=== PATIENT | female | born 1995 | race Caucasian/White ===

== ENCOUNTER 2019-06-25 10:12 | Outpatient (CLI) | payer OTHER, SELFPAY ==
--- NOTE | ~2019-06-25 | US_ITS ---
EXAMINATION: US OB >= 14 weeks Fetus DATE: 06/25/2019 11:15 INDICATION: Assess anatomy during second trimester . TECHNIQUE: Multiple obstetric sonographic images performed. FINDINGS: There is a single living fetus in variable presentation. The placenta is anterior and not low-lying. Amniotic fluid volume is subjectively normal. heart rate of 141 beats per minute. The following anatomy was identified as normal: Normal situs solitus Ventricles, choroid plexus, falx and cava septum pellucidum Cerebellum and cisterna magna Nuchal fold Upper lip Spine Heart Diaphragm Stomach Kidneys Bladder 3 vessel cord and cord insertion Bilateral upper and lower extremities including hands and feet The following biometric data were obtained: BPD: 4.2 cm -> 18 weeks 5 days Head circumference: 16.2 cm -> 19 weeks 0 days Abdominal circumference: 13.9 cm -> 19 weeks 2 days Femur length: 2.8 cm -> 18 weeks 4 days These measurements are concordant. Head circumference to abdominal circumference ratio: 1.16 (normal range 1.09-1.26). Estimated weight: 265 g (+/-) 40 g. or 9 oz. (+/-) 1 oz. IMPRESSION: 1. Single living fetus with variable presentation with heart rate of 141 bpm. 2. Gestational age by ultrasound of 18 weeks 6 day(s) (+/-) 1 week 2 day(s) with ultrasound estimat ed date of delivery (ARJUN) of 11/20/2019. Estimated weight is 20th percentile by Hadlock criteria when 11/16/2019 is used as the ARJUN. Please correlate with clinical information or earlier ultrasounds f or most accurate ARJUN. 3. Normal survey. Reviewed, dictated and finalized at location A. IMPRESSION: 1. Single living fetus with variable presentation with heart rate of 141 bpm. 2. Gestational age by ultrasound of 18 weeks 6 day(s) (+/-) 1 week 2 day(s) w ith ultrasound estimated date of delivery (ARJUN) of 11/20/2019. Estimated we ight is 20th percentile by Hadlock criteria when 11/16/2019 is used as the ARJUN. P lease correlate with clinical information or earlier ultrasounds for most accur ate ARJUN. 3. Normal survey.
== END 2019-06-25 10:13 ==
LOC: MICIMG 10:15
PROVIDERS: PCP Family Medicine; Visit Provider Obstetrics & Gynecology
DX: Z36.9 Encounter for antenatal screening, unspecified (principal); Z3A.18 18 weeks gestation of pregnancy
CPT/HCPCS: 76805

== ENCOUNTER 2021-02-03 17:33 | Emergency (ER) | payer OTHER, SELFPAY ==
[2021-02-03 17:45] VITALS: BP 130/76; PULSE 86; RESP 18; TEMP 37; O2SAT 98
--- NOTE | 2021-02-03 18:10 | ED.URI ---
HPI - URI/Sore Throat General Chief Complaint: Upper Respiratory Infection Stated Complaint: Sore Throat,Congestion Source: patient and RN notes reviewed Mode of arrival: ambulatory History of Present Illness HPI Narrative: This is a 25-year-old female who presented to urgent care with complaints of a sore throat, congestion and headache that started today at home she took ibuprofen for relief. Patient notes the she has a history strep even with her tonsillectomy. The patient denies SOB, CP, palpitation, extremity numbness, lightheadedness, dizziness, constipation, diarrhea, chills, or fever. Strep negative Related Data Allergies Allergy/AdvReac Type Severity Reaction Status Date / Time No Known Allergies Allergy Verified 02/03/21 17:51 Review of Systems Review of Systems: A 14 organ system Review of Systems was performed and pertinent positives included in the HPI, otherwise remaining ROS is negative. [facility] Family History Family History (Updated 02/03/21 @ 18:11 by LATISHA Molina) Father Hypertension Other Family history non-contributory Social History Social History Smoking status: Former smoker Smoking end date: 03/13/16 Alcohol intake: never Gender identity (if verbalized by the patient): Female Exam Narrative: GENERAL: This is a well-nourished, well-developed patient, in no apparent distress. HEAD: normocephalic, atraumatic. EYES: PERRL. Sclera clear/white. Vision is grossly intact. EARS: External ears normal, auditory canals clear and without drainage, TMs normal without perforation. Hearing grossly intact. NOSE: External nose normal with no obvious nasal discharge, nares without redness, no rhinorrhea. THROAT: Mucous membranes moist, posterior pharynx slight edema NECK: Neck supple, non-tender without lymphadenopathy, masses or thyromegaly. CARDIOVASCULAR: Regular rate and rhythm without murmurs, gallops, or rubs. RESPIRATORY: Clear to auscultation. Breath sounds equal bilaterally. No wheezes, rales, or rhonchi. GASTROINTESTINAL: Abdomen soft, non-tender, nondistended. Bowel sounds are active. No hepato-splenomegaly, or palpable masses. No guarding. SKIN: warm, intact with no suspicious lesions or rash, good texture and turgor. NEURO: awake, alert, and oriented to person, place and time. There were no obvious focal neurologic abnormalities. Steady gait EXTREMITIES: Normal range of motion. No edema. No calf tenderness. Negative Homans sign bilaterally. BACK: Nontender without deformity or crepitance. No flank tenderness. Course Course Emergency Course: Patient will discharge home instructed to treat symptoms will be prescribed Claritin and Flonase Vital Signs Vital signs: Vital Signs Temperature 98.6 F 02/03/21 17:45 Pulse Rate 86 02/03/21 17:45 Respiratory Rate 18 02/03/21 17:45 Blood Pressure 130/76 02/03/21 17:45 Pulse Oximetry 98 02/03/21 17:45 Temperature 98.6 F 02/03/21 17:45 Pulse Rate 86 02/03/21 17:45 Respiratory Rate 18 02/03/21 17:45 Blood Pressure 130/76 02/03/21 17:45 Pulse Oximetry 98 02/03/21 17:45 MDM - URI/Sore Throat Differential Diagnosis Differential diagnosis: Likely upper respiratory infection, sinusitis, viral infection, bronchitis and pharyngitis Lab Data Attestation: I reviewed the patient's lab results. Labs: Strep Screen Presumptive Negative *(Reference Range: Negative)* Discharge Plan Discharge Clinical Impression: Pharyngitis Qualifiers: Pharyngitis/tonsillitis etiology: other specified organisms Qualified Code(s): J02.8 - Acute pharyngitis due to other specified organisms Patient Disposition: Home, Self-Care Condition: Stable Instructions: Antibiotic Form, Pharyngitis (ED) Additional Instructions: This is likely viral illness, no antibiotic is needed at this time. Treatment is ai
== END 2021-02-03 18:15 | disposition home or self-care (01) ==
PROVIDERS: Emergency Provider Nurse Practitioner; PCP Family Medicine
DX: J02.8 Acute pharyngitis due to other specified organisms (principal); Z87.891 Personal history of nicotine dependence
CPT/HCPCS: 87081; 87880; 99213; G0463

== ENCOUNTER 2021-09-23 17:36 | Emergency (ER) | payer OTHER, SELFPAY ==
--- NOTE | 2021-09-23 17:41 | ED.SKABFB ---
HPI - Skin/Abscess/Foreign Bdy General Chief complaint: Skin/Abscess/Foreign Body Stated complaint: sunburn Time Seen by Provider: 09/23/21 17:50 Source: patient and RN notes reviewed Mode of arrival: ambulatory Limitations: no limitations History of Present Illness HPI narrative: 26-year-old female presents with concerns for sunburn. She reports she received sunburn approximate 3 days ago on her back and shoulders. Reports she has tried different [id number] remedies, however today's began hurting worse and she has a stinging feeling on her back. She reports she also started having a headache. She denies fever, body aches, general malaise. She denies blisters, open skin, rash, nausea, vomiting MD complaint: other (Sunburn) Related Data Home Medications Medication Instructions Recorded Confirmed omeprazole 20 mg capsule,delayed 20 mg PO DAILY 09/23/21 09/23/21 release Allergies Allergy/AdvReac Type Severity Reaction Status Date / Time No Known Allergies Allergy Verified 09/23/21 17:50 Review of Systems Review of Systems: CONSTITUTIONAL: Denies malaise, chills, sweats, or fever. GASTROINTESTINAL: Denies abdominal pain, nausea, vomiting SKIN: Reports sunburn on the back and shoulders MUSCULOSKELETAL: Denies myalgia. NEUROLOGIC: Reports headache. All systems reviewed & are unremarkable except as noted in HPI and below PMFSH Family History Family History (Updated 02/03/21 @ 18:11 by LATISHA Molina) Father Hypertension Other Family history non-contributory Social History Social History Smoking status: Former smoker Smoking end date: 03/13/16 Alcohol intake: never Gender identity (if verbalized by the patient): Female Comments At time of signature, agree with nursing past medical, surgical, social and family history. There is no relevant family history pertinent to the presenting complaint Exam Narrative: GENERAL: Well-appearing, well-nourished, and in no acute distress. HEAD: Normocephalic, atraumatic. EYES: PERRLA, conjunctivae clear ENT: Mucous membranes moist. NECK: Supple. No lymphadenopathy CHEST: Clear to auscultation. No respiratory distress. HEART: Regular rate and rhythm. SKIN: Warm, dry. Warmth and erythema noted to the upper back between the shoulders and posterior shoulders without induration, edema, vesicles, open skin, rash NEURO: Alert and oriented x3. PSYCH: Normal mood and affect Course Course Emergency Course: Patient is aware of diagnosis, understands and agrees to treatment plan. Anticipatory guidance given. Patient agrees to follow-up as directed and is aware of reasons to seek care at the emergency department. Portions of this record may have been created with voice recognition software Level of Care: Express Care Visit Vital Signs Vital signs: Reviewed. MDM - Skin/Abscess/Foreign Bdy MDM Narrative Medical decision making narrative: Exam findings show no acute concerns or changes; patient is non-toxic appearing and is in no distress. Patient is appropriate for outpatient treatment and follow-up. Critical Care Time Critical Care Time Critical Care Time: No Discharge Plan Discharge Clinical Impression: Sunburn Patient Disposition: Home, Self-Care Condition: Stable Instructions: Sunburn (ED) Additional Instructions: Apply Silvadene cream as prescribed. You may take Tylenol as needed for pain per package directions. Apply cool compresses as needed for comfort. Avoid scratching to prevent secondary infection. Follow-up with your primary care provider if you have any new symptoms or further concerns. If you have any urgent concerns please go the emergency room Prescriptions: New silver sulfadiazine [Silvadene] 1 % cream 1 applic topical DAILY Qty: 25 0RF Rx Instructions: apply a 1.5 mm thickness No Action omeprazole 20 mg Capsule,Delayed Rele
[2021-09-23 17:45] VITALS: BP 126/87; PULSE 99; RESP 17; TEMP 36.8; O2SAT 98
[2021-09-23] MEDS: methylPREDNISolone SOD SUCC 125 MG VIAL IM (18:00)
== END 2021-09-23 18:24 | disposition home or self-care (01) ==
PROVIDERS: Emergency Provider Nurse Practitioner
DX: L55.9 Sunburn, unspecified (principal); Z87.891 Personal history of nicotine dependence
CPT/HCPCS: 96372; 99213; G0463; J2930

== ENCOUNTER 2022-07-23 13:34 | Emergency (ER) | payer OTHER, SELFPAY ==
--- NOTE | 2022-07-23 13:42 | ED.URI ---
HPI - URI/Sore Throat General Chief Complaint: Upper Respiratory Infection Stated Complaint: congestion Time Seen by Provider: 07/23/22 13:42 Source: patient Mode of arrival: ambulatory Limitations: no limitations History of Present Illness HPI Narrative: Patient is a 27-year-old female who presents with sore throat and body aches since . Patient also reports low-grade fever of 100. States she gets strep frequently even though she does not have tonsils. Patient denies any ear pain, SOB, cough, Nausea, vomiting or diarrhea. Has taken ibuprofen for symptoms with moderate relief Related Data Home Medications Medication Instructions Recorded Confirmed phentermine 37.5 mg tablet 37.5 mg PO DAILY 07/23/22 07/23/22 Allergies Allergy/AdvReac Type Severity Reaction Status Date / Time No Known Allergies Allergy Verified 07/23/22 14:00 Review of Systems Review of Systems: All systems reviewed & are unremarkable except as noted in HPI and below Constitutional: Constitutional: Reports body ache(s), Denies chills, Denies fatigue, Reports fever(s), Denies headache(s), Denies malaise and Denies weakness Eyes: Eyes: Denies blurry vision, Denies itchy eyes and Denies loss of vision ENT: Denies otalgia, Denies headache(s), Reports nasal congestion, Denies sinus pain and Reports sore throat Cardiovascular: Cardiovascular: Denies chest pain, Denies irregular heart rhythm and Denies dyspnea Respiratory: Respiratory: Denies cough and Denies dyspnea Gastrointestinal: Gastrointestinal: Denies abdominal pain, Denies diarrhea, Denies nausea and Denies vomiting Musculoskeletal: Musculoskeletal: Denies back pain, Denies myalgias and Denies arthralgias Integumentary/Breasts: Skin/Breast: Denies pruritus and Denies rash Neurologic: Denies headache(s), Denies loss of vision and Denies weakness Psychiatric: Psychiatric: Reports no additional psychiatric complaints Endocrine: Endocrine: Denies fatigue Allergic/Immunologic: Allergic/Immunologic: Denies itchy eyes PMFSH Family History Family History (Updated 02/03/21 @ 18:11 by LATISHA Molina) Father Hypertension Other Family history non-contributory Social History Social History Smoking status: Former smoker Smoking end date: 03/13/16 Alcohol intake: never Gender identity (if verbalized by the patient): Female Comments At time of signature, agree with nursing past medical, surgical, social and family history. There is no relevant family history pertinent to the presenting complaint. Exam Const: General: cooperative, healthy appearing, comfortable, no acute distress and well nourished Nutritional Appearance: well nourished Orientation/consciousness: patient oriented x3 Limitations: no limitations HENMT: Head: normal to inspection, normocephalic and atraumatic Ears: hearing grossly normal bilaterally, external ears normal, TM's normal bilaterally, EAC's normal and no periauricular adenopathy Face/Nose/Sinus: Normal external nose present, Abnormal mucous membranes and turbinates present erythematous bilateral and diffuse, normal facial exam, sinuses nontender and face symmetric Face and sinus: normal facial exam, sinuses nontender and face symmetric Mouth: Yes Normal oral and palatal mucosa present, Yes lip normal, Yes tongue normal, Yes Normal salivary glands and ducts present, Yes oropharynx normal and Yes moist mucous membranes Teeth and gingiva: dentition normal Throat: uvula midline, posterior oropharynx abnormal cobblestoning, erythema and exudates and tonsils absent Eyes: General: appearance normal, both eyes and all related structures Alignment and Position: alignment normal and position normal Periorbital: periorbital findings normal Eyelids: eyelids normal Pupils: Equal, round and reactive pupils present Neck: Neck: normal visual inspection, full ROM, no lymphadenopathy and supple
[2022-07-23 13:50] VITALS: BP 109/67; PULSE 100; RESP 18; TEMP 36.9; O2SAT 98
== END 2022-07-23 14:26 | disposition home or self-care (01) ==
PROVIDERS: Emergency Provider Nurse Practitioner Family
DX: J02.0 Streptococcal pharyngitis (principal); Z87.891 Personal history of nicotine dependence
CPT/HCPCS: 87880; 99213; G0463